=== PATIENT | female | born 1970 | race Caucasian/White ===

== ENCOUNTER 2019-09-12 15:20 | Emergency (ER) | payer MEDICAID ==
[~2019-09-12] VITALS: Ht 162.6 cm; Wt 72.6 kg
[2019-09-12] MEDS ORDERED: MULTIVITAMINS1 EAC2 ORAL (15:31)
[2019-09-12 15:39] VITALS: BP 131/81
--- NOTE | 2019-09-12 15:41 | NUR ---
ED Nurse Note: pt walked in to ER from home due to constipation and hemorrhoid. pt alert and oriented x4 and ambulatory. calm and cooperative. skin clean and intact. no acute distress noted at this moment.
--- NOTE | 2019-09-12 15:44 | NUR ---
ED Nurse Note: ERPA at bedside.
[2019-09-12] MEDS ORDERED: COLACE100 MG ORAL (15:54)
[2019-09-12] MEDS ORDERED: ANUSOL-HC30 GM RC (15:55)
[2019-09-12 16:02] VITALS: BP 135/78
--- NOTE | 2019-09-12 16:03 | NUR ---
ED Nurse Note: Pt cleared by health care Provider for discharge. DC instructions/prescription was given and explained to pt and verbalized understanding of teachings. All medical deviecs such as ID band removed. Pt is AAO x4, ambulatory and left with all personal belongings.
--- NOTE | 2019-09-12 16:41 | Emergency Room Report ---
History of Present Illness General Chief Complaint: Constipation Present Illness HPI 49 year old female c/o chronic constipation and rectal pain on and off x 2 months. Patient states that symptoms worsened after colonscopy in July 2019. Pain is 7/10, burning and pressure in quality. Aggravated by constipation. States had bleeding from hemorrhoid 3 days ago, now resolved. Denies fever, chills, weakness, dizziness, shortness of breath or chest pain. Patient followed by GI, was seen last week and Rx lidocaine anorectal cream. Allergies: Coded Allergies: No Known Allergies (Unverified , 09/12/19) Patient History Past Medical History: none Past Surgical History: none Social History: Denies: smoking, alcohol use, drug use Last Menstrual Period: 09/03/2019 Now: No Review of Systems All Other Systems: negative except mentioned in HPI Physical Exam Vital Signs Date Time Temp Pulse Resp B/P (MAP) Pulse Ox O2 Delivery O2 Flow Rate FiO2 09/12/19 15:25 98.2 70 17 131/81 (98) 96 Room Air Sp02 EP Interpretation: reviewed, normal General Appearance: no apparent distress, alert, GCS 15, non-toxic Respiratory: chest non-tender, lungs clear, normal breath sounds, speaking full sentences Cardiovascular #1: regular rate, rhythm, no edema Gastrointestinal: normal inspection, non tender, soft, no mass, no guarding Rectal: hemorrhoids - JA bedside [employer]. Musculoskeletal: gait/station normal Neurologic: alert, oriented x3, responsive, motor strength/tone normal, sensory intact, speech normal Medical Decision Making PA Attestation This patient was seen under the direct supervision of Dr. Obrien, who directed all aspects of care and diagnostic interpretation. Diagnostic Impression: Primary Impression: Hemorrhoid Additional Impression: Constipation ER Course ED course HPI: 49 year old female c/o chronic constipation and rectal pain on and off x 2 months. Patient states that symptoms worsened after colonscopy in July 2019. Pain is 7/10, burning and pressure in quality. Aggravated by constipation. States had bleeding from hemorrhoid 3 days ago, now resolved. Denies fever, chills, weakness, dizziness, shortness of breath or chest pain. Patient followed by GI, was seen last week and Rx lidocaine anorectal cream. HPI & PE consistent with: Hemorrhoid, constipation Orders/ Interventions: None Patient is well-appearing, no acute distress. Abdomen soft, nontender. Do not suspect acute abdomen. Disposition: Prescription for Colace and Anusol HC given. Diet modification discussed with patient, increase fiber intake. Increase oral hydration. At this time pt. is stable for d/c to home. Will provide printed patient care instructions, and any necessary prescriptions. Care plan and follow up instructions have been discussed with the patient prior to discharge. Please note that this Emergency Department Report was dictated using [employer] technology software, occasionally this can lead to erroneous entry secondary to interpretation by the dictation equipment. Last Vital Signs Date Time Temp Pulse Resp B/P (MAP) Pulse Ox O2 Delivery O2 Flow Rate FiO2 09/12/19 16:02 97.7 77 17 135/78 98 Room Air Disposition: HOME, SELF-CARE Condition: Stable Scripts Hydrocortisone Hc 2.5% Cream (ANUSOL-HC 2.5% CREAM) Y Cr 30 GM RC TID, #28 GM Prov: Kait Melchor 09/12/19 Docusate Sodium* (COLACE*) 100 Mg Capsule 100 MG ORAL TWICE A DAY, #20 CAP Prov: Kait Melchor 09/12/19 Referrals: [facility],REFERRING (PCP) Patient Instructions: Constipation, Adult, Hemorrhoids, [id number] Additional Instructions: Increase fiber in diet. Increase oral hydration. Take medications as prescribed. Follow-up with PCP in 2 days return to ER if worsening symptoms, new symptoms or sudden change in condition. Kait Melchor Sep 12, 2019 16:41
== END 2019-09-12 16:03 | disposition home or self-care (01) ==
LOC: EMR 16:02
DX: K59.00 Constipation, unspecified (principal); K64.9 Unspecified hemorrhoids
CPT/HCPCS: 99282

== ENCOUNTER 2019-11-08 12:55 | Emergency (ER) | payer MEDICAID ==
[~2019-11-08] VITALS: Ht 162.6 cm; Wt 74.8 kg
[~2019-11-08 12:55] MED LIST: ANUSOL-HC30 GM RC; COLACE100 MG ORAL; MULTIVITAMINS1 EAC2 ORAL
[2019-11-08 13:17] VITALS: BP 137/82
--- NOTE | 2019-11-08 13:17 | NUR ---
ED Nurse Note: PT WALKED IN DUE TO CP WHEN COUGHING X 2-3 DAYS. DENIES SOB OR DIZZINESS. AO X4, AMBULATES WITH STEADY GAIT WITH NO RESPIRATORY DUSTRESS. LUNGS CLEAR WHEN AUSCULTATED.
[2019-11-08] MEDS ORDERED: TYLENOL EXTRA500 MG ORAL (13:41)
[2019-11-08] MEDS ORDERED: PROMETHAZINE-D118 ML ORAL (13:41)
[2019-11-08 13:55] VITALS: BP 132/70
--- NOTE | 2019-11-08 13:55 | NUR ---
ER DISCHARGE NOTE: Patient is cleared to be discharged per ERMD, pt is aox4, on room air, with stable vital signs. pt was given dc and prescription instructions, pt was able to verbalize understanding, pt id band removed without complications. pt is able to ambulate with steady gait. pt took all belongings and left with family member.
--- NOTE | 2019-11-08 15:25 | Emergency Room Report ---
History of Present Illness General Chief Complaint: Upper Respiratory Illness Source: Patient Present Illness HPI 49-year-old female presents ED for evaluation. Complaining of cough and congestion for the last 2 days. Cough is dry. Notes pain with coughing. Dull , 5 out of 10, nonradiating. Worse at night. Denies fevers or chills. Denies chest pain or shortness of breath. No other aggravating relieving factors. Denies any other associated symptoms Allergies: Coded Allergies: No Known Allergies (Unverified , 09/12/19) Patient History Past Medical History: none Past Surgical History: none Pertinent Family History: none Social History: Denies: smoking, alcohol use, drug use Last Menstrual Period: unk Now: No Immunizations: UTD Reviewed Nursing Documentation: PMH: Agreed; PSxH: Agreed Nursing Documentation-PMH Past Medical History: No Stated History Review of Systems All Other Systems: negative except mentioned in HPI Physical Exam Vital Signs Date Time Temp Pulse Resp B/P (MAP) Pulse Ox O2 Delivery O2 Flow Rate FiO2 11/08/19 13:07 97.9 70 18 134/80 (98) 97 Room Air Sp02 EP Interpretation: reviewed, normal General Appearance: no apparent distress, alert, GCS 15, non-toxic Head: normocephalic, atraumatic Eyes: bilateral eye normal inspection, bilateral eye PERRL ENT: hearing grossly normal, normal pharynx, no angioedema, normal voice Neck: full range of motion, supple/symm/no masses Respiratory: chest non-tender, lungs clear, normal breath sounds, speaking full sentences Cardiovascular #1: regular rate, rhythm, no edema Cardiovascular #2: 2+ carotid (R), 2+ carotid (L), 2+ radial (R), 2+ radial (L) , 2+ dorsalis pedis (R), 2+ dorsalis pedis (L) Gastrointestinal: normal bowel sounds, non tender, soft, non-distended, no guarding, no rebound Rectal: deferred Genitourinary: normal inspection, no CVA tenderness Musculoskeletal: back normal, normal range of motion, gait/station normal, non- tender Neurologic: alert, motor strength/tone normal, oriented x3, sensory intact, responsive, speech normal Psychiatric: judgement/insight normal, memory normal, mood/affect normal, no suicidal/homicidal ideation Reflexes: 3+ bicep (R), 3+ bicep (L), 3+ tricep (R), 3+ tricep (L), 3+ knee (R) , 3+ knee (L) Lymphatic: no adenopathy Medical Decision Making Diagnostic Impression: Primary Impression: Upper respiratory infection Qualified Codes: J00 - Acute nasopharyngitis [common cold] ER Course Hospital Course 49 yo F presents to ED c/o cough, congestion Differential diagnoses include: URI, pharyngitis, otitis media, asthma Clinical course Patient placed on stretcher. After initial history, physical exam reveals a middle aged female in no acute distress. Bilateral TM unremarkable. No pharyngeal erythema. No tonsillar exudates. No lymphadenopathy. lungs clear. abdomen soft. Clinical findings consistent with URI. Reassurance given to parents. treatment is supportive therapy. Safe for discharge with close outpatient follow-up. States she has a PMD Diagnosis - URI Stable and discharged home with Rx Promethazine/Dm, tylenol. Instructed to followup with PMD. Return to ED if symptoms recur or worsen Last Vital Signs Date Time Temp Pulse Resp B/P (MAP) Pulse Ox O2 Delivery O2 Flow Rate FiO2 11/08/19 13:55 98.3 82 15 132/70 100 Room Air Status: improved Disposition: HOME, SELF-CARE Condition: Stable Scripts D-Methorphan Hb/Prometh Hcl* (PROMETHAZINE-DM SYRUP*) 118 Ml Syrup 5 ML ORAL Q6H PRN for For Cough, #118 ML 0 Refills Prov: Valeriano Obrien MD 11/08/19 Acetaminophen* (TYLENOL EXTRA STRENGTH*) 500 Mg Tablet 500 MG ORAL Q8H PRN for Prn Headache/Temp > 101, #30 TAB 0 Refills Prov: Valeriano Obrien MD 11/08/19 Departure Forms: Return to Work Return to Work Date: Nov 10, 2019 Work Restrictions: None Patient Instructions: Upper Respiratory Infection, Adult Valeriano Obrien MD Nov 08, 2019 15:25
== END 2019-11-08 13:55 | disposition home or self-care (01) ==
LOC: EMR 13:00
DX: J00 Acute nasopharyngitis [common cold] (principal)
CPT/HCPCS: 99282